=== PATIENT | female | born 1940 | race Caucasian/White ===

== ENCOUNTER → 2016-10-09 16:50 | Outpatient (CLI) | payer MEDICARE, BC ==
[2016-10-09 17:34] LABS: INR 1.98 (0.85-1.17); PROTIME 22.5 SECONDS (11.6-15.0)
== END | disposition home or self-care (01) ==
LOC: D.LAB 16:50
DX: Z51.81 Encounter for therapeutic drug level monitoring (principal); Z79.01 Long term (current) use of anticoagulants

== ENCOUNTER → 2016-10-23 15:03 | Outpatient (CLI) | payer MEDICARE, BC ==
[2016-10-23 15:41] LABS: INR 2.28 (0.85-1.17); PROTIME 25.2 SECONDS (11.6-15.0)
== END | disposition home or self-care (01) ==
LOC: D.LAB 15:03
DX: I48.2 Chronic atrial fibrillation (principal)

== ENCOUNTER → 2016-11-09 15:39 | Outpatient (CLI) | payer MEDICARE, BC ==
[2016-11-09 16:48] LABS: INR 2.38 (0.85-1.17); PROTIME 26.1 SECONDS (11.6-15.0)
== END | disposition home or self-care (01) ==
LOC: D.LAB 15:39
DX: I48.2 Chronic atrial fibrillation (principal)

== ENCOUNTER 2018-01-28 16:18 | Emergency (ER) | payer MEDICARE, BC | END 2018-01-28 18:35 | disposition home or self-care (01) | LOC: D.ER 16:18 | DX: S00.03XA Contusion of scalp, initial encounter (principal); W19.XXXA Unspecified fall, initial encounter; Y93.89 Activity, other specified; Y92.019 Unspecified place in single-family (private) house as the place of occurrence of the external cause; I10 Essential (primary) hypertension ==

== ENCOUNTER 2019-03-09 12:42 | Emergency (ER) | payer MEDICARE, BC ==
[~2019-03-09] VITALS: Ht 165.1 cm; Wt 75.0 kg
[2019-03-09 12:44] VITALS: Ht 165.1 cm; Wt 75.0 kg
[2019-03-09] MEDS ORDERED: ELIQUIS5 MG PO (12:46)
[2019-03-09] MEDS ORDERED: CARDIZEM120 MG PO (12:47)
[2019-03-09] MEDS ORDERED: LASIX20 MG PO (12:48)
[2019-03-09] MEDS ORDERED: COREG25 MG PO (12:48)
[2019-03-09] MEDS ORDERED: COZAAR100 MG PO (12:49)
[2019-03-09] MEDS ORDERED: ALDACTONE25 MG PO (12:49)
[2019-03-09 13:28] LABS: BASOPHILS 0.1 % (0-2); EOSINOPHILS 0 % (0-7); HEMATOCRIT 33.1 % (36.0-48.0); HEMOGLOBIN 11.3 g/dL (12-16); IMMATURE GRANULOCYTES 0.4 % (0-5); LYMPHOCYTES 4.1 % (15-50); MCH 31.7 pg (26.0-34.0); MCHC 34.1 g/dL (31.0-37.0); MCV 92.7 fL (80.0-100.0); MEAN PLATELET VOLUME 10.9 fL (7.4-10.4); MONOCYTES 7.5 % (2-11); NEUTROPHILS 87.9 % (40-80); PLATELET COUNT 240 10x3/uL (130-400); RBC 3.57 10x6/uL (4.00-5.40); RDW 13.2 % (11.5-14.5); WBC 17.4 10x3/uL (4.8-10.8)
[2019-03-09 13:32] LABS: APPEARANCE CLEAR (CLEAR); BACTERIA FEW /hpf (NONE SEEN); BILIRUBIN NEGATIVE (NEGATIVE); COLOR YELLOW (YELLOW); EPITHELIAL CELLS 0-5 /hpf (0-5); GLUCOSE NEGATIVE (NEGATIVE); KETONE NEGATIVE (NEGATIVE); MUCUS <1+ /lpf (NONE SEEN); NITRITE NEGATIVE (NEGATIVE); PROTEIN NEGATIVE (NEGATIVE); SPECIFIC GRAVITY 1.015 (1.005-1.020); UROBILINOGEN NORMAL (NORMAL); WHITE CELLS - URINE 0-5 /hpf (0-5)
[2019-03-09 13:33] LABS: ALBUMIN 3.4 g/dL (3.4-5.0); BILIRUBIN - TOTAL 0.81 mg/dL (0.2-1.3); CALCIUM 8.9 mg/dL (8.5-10.1); CARBON DIOXIDE 21.3 mmol/L (21.0-32.0); POTASSIUM - SERUM 4.3 mmol/L (3.5-5.1); PROTEIN - SERUM 7.1 g/dL (6.4-8.2)
[2019-03-09] MEDS ORDERED: FLAGYL500 MG PO (14:49)
[2019-03-09] MEDS ORDERED: CIPRO500 MG PO (14:49)
[2019-03-09] MEDS ORDERED: ZOFRAN ODT4 MG/UDTAB PO (14:50)
[2019-03-09 14:56] VITALS: BP 126/78
== END 2019-03-09 14:57 | disposition home or self-care (01) ==
LOC: D.ER 12:42
PROVIDERS: Emergency Medicine
DX: K57.32 Diverticulitis of large intestine without perforation or abscess without bleeding (principal); N28.89 Other specified disorders of kidney and ureter; D72.829 Elevated white blood cell count, unspecified